=== PATIENT | female | born 1995 | race Two or more races ===

== ENCOUNTER 2018-08-05 17:07 | Inpatient (IN) | payer SELFPAY ==
[~2018-08-05] VITALS: Ht 162.6 cm; Wt 136.7 kg
[~2018-08-05 17:07] MED LIST: SULF1TAB24 PO; TRAM-48 PO
[2018-08-05] MEDS ORDERED: HYOSCYAMINE 0.125 MG TAB.RAPDIS PO STA (18:05)
[2018-08-05 18:32] LABS: BILIRUBIN,URINE NEGATIVE (NEG); CLARITY,URINE CLEAR; COLOR,URINE YELLOW; NITRITE,URINE NEGATIVE (NEG); PROTEIN,URINE NEGATIVE (NEG-TRACE); UROBILINOGEN,URINE 0.2 mg/dL (0.2 mg/dL)
[2018-08-05 18:39] LABS: AMORPHOUS SEDIMENT,UR PRESENT /HPF; BACTERIA,URINE MODERATE /HPF (0-FEW); SQUAMOUS EPITHELIAL CELL,UR FEW /LPF
--- NOTE | 2018-08-05 18:40 | RAD ---
CT abdomen pelvis without intravenous contrast History: Moderate mid abdominal pain for 2 hours. Comparison: None. Technique: CT of the abdomen and pelvis was performed without intravenous or oral contrast. Exposure: One or more of the following individualized dose reduction techniques were utilized for this examination: 1. Automated exposure control 2. Adjustment of the mA and/or kV according to patient size 3. Use of iterative reconstruction technique Findings: Evaluation of solid organs is limited by lack of intravenous contrast. Evaluation of enteric structures may be limited by lack of oral contrast. Liver, spleen, pancreas, gallbladder, and bilateral adrenal glands unremarkable. No bowel obstruction is identified. Urinary bladder is unremarkable. Uterus and adnexa unremarkable CT appearance. Bilateral kidneys and ureters are free stone or obstruction. The maximum diameter of the appendix is 1.0 cm. No convincing periappendiceal inflammatory change is identified. Impression: Appendix is enlarged measuring 10 mm in diameter. No convincing periappendiceal inflammation is identified. Based on size, findings would be compatible with acute appendicitis, but recommend clinical correlation. Electronically signed by: Andrew Gillespie MD (08/05/2018 6:37 PM) [facility]
[2018-08-05] MEDS ORDERED: IV RINGERS,LACTATED 500ML 1,000 ML IV ONE (18:45)
[2018-08-05 19:05] LABS: BASO % 0 % (0-3); EOS # 0.1 x10^3/uL (0.0-0.7); EOS % 1 % (0-3); HEMATOCRIT 39.1 % (36.0-47.0); HEMOGLOBIN 12.9 g/dL (12.0-15.5); LYMPH # 1.4 x10^3/uL (1.0-4.8); LYMPH % 10 % (24-48); MEAN CORPUSCULAR HEMOGLOBIN 26 pg (25-35); MEAN CORPUSCULAR HGB CONC 33 g/dL (31-37); MEAN CORPUSCULAR VOLUME 80 fL (79-100); MONO # 0.6 x10^3/uL (0.0-1.1); MONO % 4 % (0-9); NEUT # 12.7 x10^3uL (1.8-7.7); NEUT % 86 % (31-73); PLATELET COUNT 437 x10^3/uL (140-400); RED BLOOD COUNT 4.91 x10^6/uL (3.50-5.40); RED CELL DISTRIBUTION WIDTH 15.4 % (11.5-14.5); WHITE BLOOD COUNT 14.8 x10^3/uL (4.0-11.0)
[2018-08-05 19:15] LABS: CALCIUM 8.8 mg/dL (8.5-10.1); CREATININE 0.7 mg/dL (0.6-1.0); GFR 104.6; POTASSIUM 3.9 mmol/L (3.5-5.1)
[2018-08-05 19:16] LABS: PREG TEST PT QUAL NEGATIVE (NEG)
[2018-08-05 19:21] LABS: ALBUMIN 3.5 g/dL (3.4-5.0); ALBUMIN/GLOBULIN RATIO 0.7 (1.0-1.7); TOTAL BILIRUBIN 0.2 mg/dL (0.2-1.0); TOTAL PROTEIN 8.5 g/dL (6.4-8.2)
--- NOTE | 2018-08-05 19:33 | PHYS DOC ---
Past Medical History Past Medical History: No Pertinent History Past Surgical History: Other Additional Past Surgical Histo: bilateral eyes Alcohol Use: None Drug Use: None Adult General Chief Complaint Chief Complaint: ABDOMINAL PAIN HPI HPI Patient is a 23 year old [f__sex] who presents with [periumbilical pain. Some nausea, no vomiting, no vaginal bleeding, discharge, nor dysuria. Patient's last menstrual period was approximately 1.5 weeks ago. She denies any trauma. This is been present for the past 2 hours. Nothing really seems to make it better or worse. No radiation of the discomfort, no migration.] Review of Systems Review of Systems Constitutional: Denies fever or chills [] Eyes: Denies change in visual acuity, redness, or eye pain [] HENT: Denies nasal congestion or sore throat [] Respiratory: Denies cough or shortness of breath [] Cardiovascular: No chest pain, no palpitations[] GI: See history of present illness[] : Denies dysuria or hematuria [] Musculoskeletal: Denies back pain or joint pain [] Integument: Denies rash or skin lesions [] Neurologic: Denies headache, focal weakness or sensory changes [] Endocrine: Denies polyuria or polydipsia [] All other systems were reviewed and found to be within normal limits, except as documented in this note. Current Medications Current Medications Current Medications Medications (Trade) Dose Ordered Sig/Magda Start Time Stop Time Status Last Admin Dose Admin Hyoscyamine (Anaspaz) 0.125 mg 1X STAT 08/05/18 18:05 08/05/18 18:09 DC 08/05/18 18:54 0.125 MG Ondansetron HCl (Zofran) 4 mg 1X ONCE 08/05/18 19:45 08/05/18 19:46 DC 08/05/18 19:42 4 MG Ringer's Solution 1,000 ml @ 500 mls/hr 1X ONCE 08/05/18 18:45 08/05/18 20:44 08/05/18 18:55 500 MLS/HR Allergies Allergies Allergies Coded Allergies Type Severity Reaction Last Updated Verified No Known Drug Allergies 03/26/15 No Physical Exam Physical Exam Constitutional: Well developed, well nourished, no acute distress, non-toxic appearance. [] HENT: Normocephalic, atraumatic, bilateral external ears normal, oropharynx moist, no oral exudates, nose normal. [] Eyes: PERRLA, EOMI, conjunctiva normal, no discharge. [] Neck: Normal range of motion, no tenderness, supple, no stridor. [] Cardiovascular:Heart rate regular rhythm, no murmur [] Lungs & Thorax: Bilateral breath sounds clear to auscultation [] Abdomen: Bowel sounds normal, soft, there is some area umbilical tenderness, no rebound, no Rovsing's or obturator signs, no masses, no pulsatile masses. [] Skin: Warm, dry, no erythema, no rash. [] Back: No tenderness, no CVA tenderness. [] Extremities: No tenderness, no cyanosis, no clubbing, ROM intact, no edema. [] Neurologic: Alert and oriented X 3, normal motor function, normal sensory function, no focal deficits noted. [] Psychologic: Affect normal, judgement normal, mood normal. [] Current Patient Data Vital Signs Vital Signs Date Time Temp Pulse Resp B/P (MAP) Pulse Ox O2 Delivery O2 Flow Rate FiO2 08/05/18 17:43 98.0 77 16 158/73 (101) 100 Room Air 98.0 Lab Values Laboratory Tests Test 08/05/18 17:43 08/05/18 17:49 08/05/18 18:45 Urine Collection Type Void Urine Color Yellow Urine Clarity Clear Urine pH 6.0 Urine Specific [place] 1.025 Urine Protein Negative mg/dL (NEG-TRACE) Urine Glucose (UA) Negative mg/dL (NEG) Urine Ketones (Stick) Negative mg/dL (NEG) Urine Blood Trace (NEG) Urine Nitrite Negative (NEG) Urine Bilirubin Negative (NEG) Urine Urobilinogen Dipstick 0.2 mg/dL (0.2 mg/dL) Urine Leukocyte Esterase Negative (NEG) Urine RBC 1-2 /HPF (0-2) Urine WBC 11-20 /HPF (0-4) Urine Squamous Epithelial Cells Few /LPF Urine Amorphous Sediment Present /HPF Urine Bacteria Moderate /HPF (0-FEW) Urine Mucus Mod /LPF POC Urine HCG, Qualitative Hcg negative (Negative) White Blood Count 14.8 x10^3/uL (4.0-11.0) H Red Blood Count 4.91 x10^6/uL (3.50-5.40) Hemoglobin 12.9 g/dL (12.0-15.5) Hematocrit 39.1 % (36.0-47.0) Mean Corpuscular Volume 80 fL (79-100) Mean Corpuscular Hemoglobin 26 pg (25-35) Mean Corpuscular Hemoglobin Concent 33 g/dL (31-37) Red Cell Distribution Width 15.4 % (11.5-14.5) H Platelet Count 437 x10^3/uL (140-400) H Neutrophils (%) (Auto) 86 % (31-73) H Lymphocytes (%) (Auto) 10 % (24-48) L Monocytes (%) (Auto) 4 % (0-9) Eosinophils (%) (Auto) 1 % (0-3) Basophils (%) (Auto) 0 % (0-3) Neutrophils # (Auto) 12.7 x10^3uL (1.8-7.7) H Lymphocytes # (Auto) 1.4 x10^3/uL (1.0-4.8) Monocytes # (Auto) 0.6 x10^3/uL (0.0-1.1) Eosinophils # (Auto) 0.1 x10^3/uL (0.0-0.7) Basophils # (Auto) 0.0 x10^3/uL (0.0-0.2) Sodium Level 140 mmol/L (136-145) Potassium Level 3.9 mmol/L (3.5-5.1) Chloride Level 102 mmol/L (98-107) Carbon Dioxide Level 29 mmol/L (21-32) Anion Gap 9 (6-14) Blood Urea Nitrogen 13 mg/dL (7-20) Creatinine 0.7 mg/dL (0.6-1.0) Estimated GFR (Cockcroft-Gault) 104.6 BUN/Creatinine Ratio 19 (6-20) Glucose Level 103 mg/dL (70-99) H Calcium Level 8.8 mg/dL (8.5-10.1) Total Bilirubin 0.2 mg/dL (0.2-1.0) Aspartate Amino Transferase (AST) 15 U/L (15-37) Alanine Aminotransferase (ALT) 32 U/L (14-59) Alkaline Phosphatase 113 U/L (46-116) Total Protein 8.5 g/dL (6.4-8.2) H Albumin 3.5 g/dL (3.4-5.0) Albumin/Globulin Ratio 0.7 (1.0-1.7) L Lipase 100 U/L (73-393) Serum Test, Qualitative Negative (NEG) Laboratory Tests 08/05/18 18:45 Laboratory Tests 08/05/18 18:45 EKG EKG EKG shows normal sinus rhythm no ST elevations. Rate of 71, normal axis[] Radiology/Procedures Radiology/Procedures CT scan of the abdomen and pelvis shows a 10 mm appendix however there is no convincing periappendiceal inflammation.[] Course & Med Decision Making Course & Med Decision Making Pertinent Labs and Imaging studies reviewed. (See chart for details) [Elevated white count, some white cells in the urine. Essentially normal chemistry panel] ED course patient was placed and the patient tolerates exam well. During the course of her ED stay attempted to treat the discomfort with Levsin which she threw up. Of her emergency Department stay of pain started migrating to the right lower quadrant and increased pain with passive movement of her abdomen. Due to this, consultation was made with surgical service due to exam findings as well as the CT scan. Dragon Disclaimer Dragon Disclaimer This electronic medical record was generated, in whole or in part, using a voice recognition dictation system. Departure Departure Impression: Primary Impression: Appendicitis Disposition: ADMITTED INPATIENT Admitting Physician: Other Condition: STABLE Referrals: NO PCP (PCP) JORGE LUIS SANCHEZ DO Aug 05, 2018 19:33
[2018-08-05] MEDS ORDERED: ONDANSETRON PF 4 MG/2 ML VIAL. IV ONE (19:45)
[2018-08-05 20:20] VITALS: BP 145/67
[2018-08-05] MEDS: MORPHINE SULFATE 2 MG/ML VIAL. IV PRN (21:14)
[2018-08-05] MEDS: ONDANSETRON PF 4 MG/2 ML VIAL. IV PRN (21:17)
[2018-08-05 23:00] VITALS: BP 125/65
[2018-08-06] VITALS (13 sets, daily range): BP systolic 104–133; BP diastolic 39–67
[2018-08-06] MEDS: MORPHINE SULFATE 2 MG/ML VIAL. IV PRN ×4 (00:30→07:24)
[2018-08-06] MEDS: PIPERACILLIN/TAZOBACTAM 3.375 GM in IV NORMAL SALINE 50ML 50 ML IV SCH ×5 (00:31→23:43)
[2018-08-06 05:26] LABS: BASO % 0 % (0-3); EOS % 0 % (0-3); HEMATOCRIT 36.8 % (36.0-47.0); LYMPH # 1.3 x10^3/uL (1.0-4.8); LYMPH % 9 % (24-48); MEAN CORPUSCULAR HEMOGLOBIN 26 pg (25-35); MEAN CORPUSCULAR HGB CONC 33 g/dL (31-37); MEAN CORPUSCULAR VOLUME 81 fL (79-100); MONO # 0.7 x10^3/uL (0.0-1.1); MONO % 5 % (0-9); NEUT % 86 % (31-73); PLATELET COUNT 419 x10^3/uL (140-400); RED BLOOD COUNT 4.56 x10^6/uL (3.50-5.40); RED CELL DISTRIBUTION WIDTH 15.3 % (11.5-14.5); WHITE BLOOD COUNT 15.1 x10^3/uL (4.0-11.0)
[2018-08-06] MEDS ORDERED: INFLUENZA VAX SCREEN BY RX. MC PRN (05:30)
[2018-08-06 06:04] LABS: ALBUMIN 3.2 g/dL (3.4-5.0); ALBUMIN/GLOBULIN RATIO 0.7 (1.0-1.7); CALCIUM 9.2 mg/dL (8.5-10.1); CREATININE 0.8 mg/dL (0.6-1.0); GFR 89.7; POTASSIUM 4.2 mmol/L (3.5-5.1); TOTAL BILIRUBIN 0.4 mg/dL (0.2-1.0)
[2018-08-06] MEDS: ONDANSETRON PF 4 MG/2 ML VIAL. IV PRN (07:25)
--- NOTE | 2018-08-06 07:53 | PDOC1 ---
History and Physical Date of Admission Date of Admission DATE: 08/06/18 TIME: 07:48 Identification/Chief Complaint Chief Complaint Abdominal pain Source Source: Patient History of Present Illness History of Present Illness 23-year-old female with a 24-hour history of right lower quadrant abdominal pain and nausea no vomiting no fevers chills Past Medical History Cardiovascular: No pertinent hx Pulmonary: No pertinent hx GI: No pertinent hx Heme/Onc: No pertinent hx Hepatobiliary: No pertinent hx Psych: No pertinent hx Rheumatologic: No pertinent hx Infectious disease: No pertinent hx ENT: No pertinent hx Renal/: No pertinent hx Endocrine: No pertinent hx Dermatology: No pertinent hx Past Surgical History Past Surgical History: Other (Eye surgery) Family History Family History: No Significant Social History Smoke: No ALCOHOL: none Drugs: None Current Problem List Problem List Problems Medical Problems: (1) Appendicitis Status: Acute Current Medications Current Medications Current Medications Hyoscyamine (Anaspaz) 0.125 mg 1X STAT PO Last administered on 08/05/18at 18: 54; Start 08/05/18 at 18:05; Stop 08/05/18 at 18:09; Status DC Ringer's Solution 1,000 ml @ 500 mls/hr 1X ONCE IV Last administered on 08/05at 18:55; Start 08/05/18 at 18:45; Stop 08/05/18 at 20:44; Status DC Ondansetron HCl (Zofran) 4 mg 1X ONCE IV Last administered on 08/05/18at 19:42 ; Start 08/05/18 at 19:45; Stop 08/05/18 at 19:46; Status DC Ondansetron HCl (Zofran) 4 mg PRN Q8HRS PRN IV NAUSEA/VOMITING Last administered on 08/06/18at 07:25; Start 08/05/18 at 20:00; Stop 08/06/18 at 19 :59 Morphine Sulfate (Morphine Sulfate) 2 mg PRN Q2HR PRN IV PAIN Last administered on 08/06/18at 07:24; Start 08/05/18 at 20:00; Stop 08/06/18 at 19 :59 Piperacillin Sod/ Tazobactam Sod 3.375 gm/Sodium Chloride 50 ml @ 100 mls/hr Q6HRS IV Last administered on 08/06/18at 06:00; Start 08/06/18 at 00:00 Influenza Virus Vaccine (Afluria Trivalent [id number] Syringe) 0.5 ml ONCE ONCE VAX IM ; Start 08/06/18 at 09:00; Stop 08/06/18 at 09:01 Info (FLU VACCINE SCREEN per RX) 1 each PRN 1X PRN MC SEE COMMENTS; Start at 05:30; Status Cancel Active Scripts Active Bactrim Ds Tablet (Sulfamethoxazole/Trimethoprim) 1 Each Tablet 2 Tab PO BID 7 Days Ultram (Tramadol Hcl) 50 Mg Tablet 50 Mg PO Q6H PRN Allergies Allergies: Coded Allergies: No Known Drug Allergies (Unverified , 03/26/15) ROS Gastrointestinal: Yes Nausea, Yes Abdominal Pain Physical Exam General: Alert, Oriented X3, Cooperative, moderate distress HEENT: Atraumatic, PERRLA, EOMI Lungs: Clear to auscultation, Normal air movement Heart: RRR, no murmurs Abdomen: Normal bowel sounds, Soft, Other (right lower quadrant tenderness) Extremities: No clubbing, No edema Skin: No significant lesion Neuro: Normal speech Psych/Mental Status: Mental status NL Vitals Vitals Vital Signs Date Time Temp Pulse Resp B/P (MAP) Pulse Ox O2 Delivery O2 Flow Rate FiO2 08/06/18 07:24 Room Air 08/06/18 06:22 18 08/06/18 03:00 98.6 65 117/67 (84) 98 98.6 Labs Labs Laboratory Tests Test 08/05/18 17:43 08/05/18 17:49 08/05/18 18:45 08/06/18 04:10 Urine Collection Type Void Urine Color Yellow Urine Clarity Clear Urine pH 6.0 Urine Specific [place] 1.025 Urine Protein Negative mg/dL (NEG-TRACE) Urine Glucose (UA) Negative mg/dL (NEG) Urine Ketones (Stick) Negative mg/dL (NEG) Urine Blood Trace (NEG) Urine Nitrite Negative (NEG) Urine Bilirubin Negative (NEG) Urine Urobilinogen Dipstick 0.2 mg/dL (0.2 mg/dL) Urine Leukocyte Esterase Negative (NEG) Urine RBC 1-2 /HPF (0-2) Urine WBC 11-20 /HPF (0-4) Urine Squamous Epithelial Cells Few /LPF Urine Amorphous Sediment Present /HPF Urine Bacteria Moderate /HPF (0-FEW) Urine Mucus Mod /LPF Bedside Urine HCG, Qualitative Hcg negative (Negative) White Blood Count 14.8 x10^3/uL (4.0-11.0) 15.1 x10^3/uL (4.0-11.0) Red Blood Count 4.91 x10^6/uL (3.50-5.40) 4.56 x10^6/uL (3.50-5.40) Hemoglobin 12.9 g/dL (12.0-15.5) 12.0 g/dL (12.0-15.5) Hematocrit 39.1 % (36.0-47.0) 36.8 % (36.0-47.0) Mean Corpuscular Volume 80 fL (79-100) 81 fL (79-100) Mean Corpuscular Hemoglobin 26 pg (25-35) 26 pg (25-35) Mean Corpuscular Hemoglobin Concent 33 g/dL (31-37) 33 g/dL (31-37) Red Cell Distribution Width 15.4 % (11.5-14.5) 15.3 % (11.5-14.5) Platelet Count 437 x10^3/uL (140-400) 419 x10^3/uL (140-400) Neutrophils (%) (Auto) 86 % (31-73) 86 % (31-73) Lymphocytes (%) (Auto) 10 % (24-48) 9 % (24-48) Monocytes (%) (Auto) 4 % (0-9) 5 % (0-9) Eosinophils (%) (Auto) 1 % (0-3) 0 % (0-3) Basophils (%) (Auto) 0 % (0-3) 0 % (0-3) Neutrophils # (Auto) 12.7 x10^3uL (1.8-7.7) 13.0 x10^3uL (1.8-7.7) Lymphocytes # (Auto) 1.4 x10^3/uL (1.0-4.8) 1.3 x10^3/uL (1.0-4.8) Monocytes # (Auto) 0.6 x10^3/uL (0.0-1.1) 0.7 x10^3/uL (0.0-1.1) Eosinophils # (Auto) 0.1 x10^3/uL (0.0-0.7) 0.0 x10^3/uL (0.0-0.7) Basophils # (Auto) 0.0 x10^3/uL (0.0-0.2) 0.0 x10^3/uL (0.0-0.2) Sodium Level 140 mmol/L (136-145) 139 mmol/L (136-145) Potassium Level 3.9 mmol/L (3.5-5.1) 4.2 mmol/L (3.5-5.1) Chloride Level 102 mmol/L (98-107) 102 mmol/L (98-107) Carbon Dioxide Level 29 mmol/L (21-32) 31 mmol/L (21-32) Anion Gap 9 (6-14) 6 (6-14) Blood Urea Nitrogen 13 mg/dL (7-20) 10 mg/dL (7-20) Creatinine 0.7 mg/dL (0.6-1.0) 0.8 mg/dL (0.6-1.0) Estimated GFR (Cockcroft-Gault) 104.6 89.7 BUN/Creatinine Ratio 19 (6-20) 13 (6-20) Glucose Level 103 mg/dL (70-99) 115 mg/dL (70-99) Calcium Level 8.8 mg/dL (8.5-10.1) 9.2 mg/dL (8.5-10.1) Total Bilirubin 0.2 mg/dL (0.2-1.0) 0.4 mg/dL (0.2-1.0) Aspartate Amino Transf (AST/SGOT) 15 U/L (15-37) 14 U/L (15-37) Alanine Aminotransferase (ALT/SGPT) 32 U/L (14-59) 27 U/L (14-59) Alkaline Phosphatase 113 U/L (46-116) 99 U/L (46-116) Total Protein 8.5 g/dL (6.4-8.2) 8.0 g/dL (6.4-8.2) Albumin 3.5 g/dL (3.4-5.0) 3.2 g/dL (3.4-5.0) Albumin/Globulin Ratio 0.7 (1.0-1.7) 0.7 (1.0-1.7) Lipase 100 U/L (73-393) Serum Test, Qualitative Negative (NEG) Laboratory Tests Test 08/05/18 17:43 08/05/18 17:49 18 18:45 08/06/18 04:10 Urine Collection Type Void Urine Color Yellow Urine Clarity Clear Urine pH 6.0 Urine Specific [place] 1.025 Urine Protein Negative mg/dL (NEG-TRACE) Urine Glucose (UA) Negative mg/dL (NEG) Urine Ketones (Stick) Negative mg/dL (NEG) Urine Blood Trace (NEG) Urine Nitrite Negative (NEG) Urine Bilirubin Negative (NEG) Urine Urobilinogen Dipstick 0.2 mg/dL (0.2 mg/dL) Urine Leukocyte Esterase Negative (NEG) Urine RBC 1-2 /HPF (0-2) Urine WBC 11-20 /HPF (0-4) Urine Squamous Epithelial Cells Few /LPF Urine Amorphous Sediment Present /HPF Urine Bacteria Moderate /HPF (0-FEW) Urine Mucus Mod /LPF Bedside Urine HCG, Qualitative Hcg negative (Negative) White Blood Count 14.8 x10^3/uL (4.0-11.0) 15.1 x10^3/uL (4.0-11.0) Red Blood Count 4.91 x10^6/uL (3.50-5.40) 4.56 x10^6/uL (3.50-5.40) Hemoglobin 12.9 g/dL (12.0-15.5) 12.0 g/dL (12.0-15.5) Hematocrit 39.1 % (36.0-47.0) 36.8 % (36.0-47.0) Mean Corpuscular Volume 80 fL (79-100) 81 fL (79-100) Mean Corpuscular Hemoglobin 26 pg (25-35) 26 pg (25-35) Mean Corpuscular Hemoglobin Concent 33 g/dL (31-37) 33 g/dL (31-37) Red Cell Distribution Width 15.4 % (11.5-14.5) 15.3 % (11.5-14.5) Platelet Count 437 x10^3/uL (140-400) 419 x10^3/uL (140-400) Neutrophils (%) (Auto) 86 % (31-73) 86 % (31-73) Lymphocytes (%) (Auto) 10 % (24-48) 9 % (24-48) Monocytes (%) (Auto) 4 % (0-9) 5 % (0-9) Eosinophils (%) (Auto) 1 % (0-3) 0 % (0-3) Basophils (%) (Auto) 0 % (0-3) 0 % (0-3) Neutrophils # (Auto) 12.7 x10^3uL (1.8-7.7) 13.0 x10^3uL (1.8-7.7) Lymphocytes # (Auto) 1.4 x10^3/uL (1.0-4.8) 1.3 x10^3/uL (1.0-4.8) Monocytes # (Auto) 0.6 x10^3/uL (0.0-1.1) 0.7 x10^3/uL (0.0-1.1) Eosinophils # (Auto) 0.1 x10^3/uL (0.0-0.7) 0.0 x10^3/uL (0.0-0.7) Basophils # (Auto) 0.0 x10^3/uL (0.0-0.2) 0.0 x10^3/uL (0.0-0.2) Sodium Level 140 mmol/L (136-145) 139 mmol/L (136-145) Potassium Level 3.9 mmol/L (3.5-5.1) 4.2 mmol/L (3.5-5.1) Chloride Level 102 mmol/L (98-107) 102 mmol/L (98-107) Carbon Dioxide Level 29 mmol/L (21-32) 31 mmol/L (21-32) Anion Gap 9 (6-14) 6 (6-14) Blood Urea Nitrogen 13 mg/dL (7-20) 10 mg/dL (7-20) Creatinine 0.7 mg/dL (0.6-1.0) 0.8 mg/dL (0.6-1.0) Estimated GFR (Cockcroft-Gault) 104.6 89.7 BUN/Creatinine Ratio 19 (6-20) 13 (6-20) Glucose Level 103 mg/dL (70-99) 115 mg/dL (70-99) Calcium Level 8.8 mg/dL (8.5-10.1) 9.2 mg/dL (8.5-10.1) Total Bilirubin 0.2 mg/dL (0.2-1.0) 0.4 mg/dL (0.2-1.0) Aspartate Amino Transf (AST/SGOT) 15 U/L (15-37) 14 U/L (15-37) Alanine Aminotransferase (ALT/SGPT) 32 U/L (14-59) 27 U/L (14-59) Alkaline Phosphatase 113 U/L (46-116) 99 U/L (46-116) Total Protein 8.5 g/dL (6.4-8.2) 8.0 g/dL (6.4-8.2) Albumin 3.5 g/dL (3.4-5.0) 3.2 g/dL (3.4-5.0) Albumin/Globulin Ratio 0.7 (1.0-1.7) 0.7 (1.0-1.7) Lipase 100 U/L (73-393) Serum Test, Qualitative Negative (NEG) Images Images CT scan of the abdomen shows enlarged appendix no periappendiceal inflammation VTE Prophylaxis Ordered VTE Prophylaxis Devices: No VTE Pharmacological Prophylaxi: Contraindicated Assessment/Plan Assessment/Plan Acute appendicitis plan laparoscopic appendectomy BABS LITTLE MD Aug 06, 2018 07:52
[2018-08-06 08:04] LABS: % BANDS 3 % (0-9); % LYMPHS 15 % (24-48); % MONOS 7 % (0-10); % SEGS 75 % (35-66); PLT ESTIMATE INCREASED (ADEQUATE)
[2018-08-06] MEDS ORDERED: IV RINGERS,LACTATED 1000ML 1,000 ML IV SCH (09:02)
[2018-08-06] MEDS ORDERED: LIDOCAINE 1% PF 2 ML VIAL. ID PRN (09:15)
[2018-08-06] MEDS ORDERED: fentaNYL PF VIAL 100 MCG/2 ML VIAL IV PRN ×2 (09:15)
[2018-08-06] MEDS ORDERED: MORPHINE SULFATE 2 MG/ML VIAL. IV PRN ×2 (09:15→12:30)
[2018-08-06] MEDS ORDERED: HYDROmorphone 2 MG/ML VIAL IV PRN (09:15)
[2018-08-06] MEDS ORDERED: PROCHLORPERAZINE 10 MG/2 ML VIAL. IV PRN (09:15)
[2018-08-06] MEDS ORDERED: ONDANSETRON PF 4 MG/2 ML VIAL. IV PRN ×2 (09:15→12:30)
[2018-08-06] MEDS ORDERED: DEXAMETHASONE SOD PHOS 20 MG/5 ML VIAL. ONE (09:45)
[2018-08-06] MEDS ORDERED: ONDANSETRON PF 4 MG/2 ML VIAL. ONE (09:45)
[2018-08-06] MEDS ORDERED: SEVOFLURANE 31 TO 60 MINUTES. IH ONE (09:45)
[2018-08-06] MEDS ORDERED: fentaNYL PF VIAL 100 MCG/2 ML VIAL ONE ×2 (09:45→12:39)
[2018-08-06] MEDS ORDERED: KETOROLAC 30 MG/ML INJ FOR OR. INJ ONE (09:45)
[2018-08-06] MEDS ORDERED: PROPOFOL 20 ML IV ONE ×2 (09:45→12:20)
[2018-08-06] MEDS ORDERED: BUPIVAC MPF-EPI 0.5%-1:200000 30 ML VIAL. ONE (10:24)
[2018-08-06] MEDS ORDERED: NEOSTIGMINE METHYLSULFATE 5 MG/5 ML SYRINGE. ONE (12:02)
[2018-08-06] MEDS ORDERED: GLYCOPYRROLATE 1 MG/5 ML VIAL. ONE (12:02)
[2018-08-06] MEDS ORDERED: oxyCODONE/APAP 5/325 1 TAB TABLET PO PRN (12:30)
[2018-08-06] MEDS ORDERED: 0.9 % SODIUM CHLORIDE 10 ML DISP.SYRIN. IV PRN (12:30)
--- NOTE | 2018-08-06 12:31 | PDOC4 ---
Operative Note Operative Note Date: 08/06/2018 Preoperative diagnosis: Acute appendicitis Postoperative diagnosis: Same Procedure: Laparoscopic appendectomy Surgeon: Deyvi Specimen: Appendix Patient: Patient is a 23-year-old female is mated to the hospital with right lower quadrant abdominal pain and elevated white count and a CT scan showing a dilated appendix procedure of laparoscopic appendectomy was explained to the patient detail was benefits were also discussed including bleeding infection injury to intra-abdominal contents possibly necessitating further or open operations alternatives to this procedure also discussed with the patient who seemed understanding gave both verbal and written consent had procedure performed. Patient was taken to the operating room placed in supine position general anesthesia was initiated once patient was asleep and intubated her abdomen was prepped and draped usual sterile fashion using ChloraPrep. Just below the umbilicus injected with quarter percent Marcaine with epinephrine incision was made lead blade scalpel varies needle was placed within the abdomen creating pneumoperitoneum once this was complete a 12 mm port was placed at the umbilicus and a 5 mm camera was placed within the abdomen which was inspected no other at maladies were noted was noted the appendix was somewhat dilated and mildly inflamed. A 5 mm port was placed low in the midline and a second 5 mm port was placed in the right mid abdomen camera was moved to the lower midline port the appendix was grasped retracted towards anterior abdominal wall window was propagated through the mesoappendix with [place] dissector a Endo KELI stapler was then used to staple and transect the base the appendix a second load on the stapler was used to staple and transect the mesoappendix. Endo Catch was then placed in Endo Catch bag and removed from the umbilicus right lower quadrant was irrigated and suctioned dry hemostasis didn' t be appropriate and the pneumoperitoneum was reduced all ports removed the fascial defect at the umbilicus was closed with [id number] 0 Vicryl suture and the skin was approximated all port sites with 4-0 Monocryl Mastisol Steri- Strips and island dressings were applied. Patient was waken next made in the operating room taken recovery in stable condition all sponge instrument needle counts listed as correct. Estimated blood loss 5 mL ABBS LITTLE MD Aug 06, 2018 12:31
[2018-08-06] MEDS: IV DEXTROSE 5%-LACT RINGERS 1,000 ML IV SCH ×2 (13:51→23:40)
--- NOTE | 2018-08-06 16:03 | EKG ---
[facility] [address] [place] [address] Test Date: 2018-08-05 Test Time: 17:52:43 Pat Name: YANNA HOLLOWAY Department: Room: 444 1 Gender: F Biology Specialist: : [id number] Requested By: BABS LITTLE Order Number: [id number] Reading MD: Eric Guadalupe MD Measurements Intervals Artie Rate: 71 P: 31 LA: 138 QRS: 47 QRSD: 78 T: 34 QT: 372 QTc: 409 Interpretive Statements SINUS RHYTHM Electronically Signed On 08-07-2018 13:44:24 CDT by Eric Guadalupe MD
[2018-08-06] MEDS: KETOROLAC 15 MG/ML VIAL. IV SCH ×2 (17:26→23:39)
[2018-08-06] MEDS: oxyCODONE/APAP 5/325 1 TAB TABLET PO PRN (23:40)
[2018-08-07 03:22] VITALS: BP 108/51
[2018-08-07] MEDS: oxyCODONE/APAP 5/325 1 TAB TABLET PO PRN ×2 (04:33→11:14)
[2018-08-07 05:00] LABS: BASO % 0 % (0-3); EOS % 0 % (0-3); HEMATOCRIT 32.1 % (36.0-47.0); HEMOGLOBIN 10.5 g/dL (12.0-15.5); LYMPH # 1.6 x10^3/uL (1.0-4.8); LYMPH % 13 % (24-48); MEAN CORPUSCULAR HEMOGLOBIN 27 pg (25-35); MEAN CORPUSCULAR HGB CONC 33 g/dL (31-37); MEAN CORPUSCULAR VOLUME 81 fL (79-100); MONO # 0.8 x10^3/uL (0.0-1.1); MONO % 7 % (0-9); NEUT # 9.8 x10^3uL (1.8-7.7); NEUT % 81 % (31-73); PLATELET COUNT 354 x10^3/uL (140-400); RED BLOOD COUNT 3.96 x10^6/uL (3.50-5.40); RED CELL DISTRIBUTION WIDTH 15.2 % (11.5-14.5); WHITE BLOOD COUNT 12.2 x10^3/uL (4.0-11.0)
[2018-08-07] MEDS: KETOROLAC 15 MG/ML VIAL. IV SCH (06:07)
[2018-08-07] MEDS: PIPERACILLIN/TAZOBACTAM 3.375 GM in IV NORMAL SALINE 50ML 50 ML IV SCH (06:09)
[2018-08-07 07:00] VITALS: BP 136/66
--- NOTE | 2018-08-07 09:07 | PDOC3 ---
Discharge Summary Visit Information Date of Admission: Aug 05, 2018 Date of Discharge: Aug 07, 2018 Admitting Diagnosis: acute appendicitis Final Diagnosis Problems Medical Problems: (1) Appendicitis Status: Acute Brief Hospital Course Allergies Allergies Coded Allergies Type Severity Reaction Last Updated Verified No Known Drug Allergies 08/06/18 No Vital Signs Vital Signs Date Time Temp Pulse Resp B/P (MAP) Pulse Ox O2 Delivery O2 Flow Rate FiO2 08/07/18 05:35 Room Air 08/07/18 04:33 20 98 08/07/18 03:22 98.2 57 108/51 (70) 98.2 08/06/18 23:40 10.0 Lab Results Laboratory Tests Test 08/05/18 17:43 08/05/18 17:49 08/05/18 18:45 08/06/18 04:10 Urine Collection Type Void Urine Color Yellow Urine Clarity Clear Urine pH 6.0 Urine Specific [place] 1.025 Urine Protein Negative mg/dL (NEG-TRACE) Urine Glucose (UA) Negative mg/dL (NEG) Urine Ketones (Stick) Negative mg/dL (NEG) Urine Blood Trace (NEG) Urine Nitrite Negative (NEG) Urine Bilirubin Negative (NEG) Urine Urobilinogen Dipstick 0.2 mg/dL (0.2 mg/dL) Urine Leukocyte Esterase Negative (NEG) Urine RBC 1-2 /HPF (0-2) Urine WBC 11-20 /HPF (0-4) Urine Squamous Epithelial Cells Few /LPF Urine Amorphous Sediment Present /HPF Urine Bacteria Moderate /HPF (0-FEW) Urine Mucus Mod /LPF Bedside Urine HCG, Qualitative Hcg negative (Negative) White Blood Count 14.8 x10^3/uL (4.0-11.0) 15.1 x10^3/uL (4.0-11.0) Red Blood Count 4.91 x10^6/uL (3.50-5.40) 4.56 x10^6/uL (3.50-5.40) Hemoglobin 12.9 g/dL (12.0-15.5) 12.0 g/dL (12.0-15.5) Hematocrit 39.1 % (36.0-47.0) 36.8 % (36.0-47.0) Mean Corpuscular Volume 80 fL (79-100) 81 fL (79-100) Mean Corpuscular Hemoglobin 26 pg (25-35) 26 pg (25-35) Mean Corpuscular Hemoglobin Concent 33 g/dL (31-37) 33 g/dL (31-37) Red Cell Distribution Width 15.4 % (11.5-14.5) 15.3 % (11.5-14.5) Platelet Count 437 x10^3/uL (140-400) 419 x10^3/uL (140-400) Neutrophils (%) (Auto) 86 % (31-73) 86 % (31-73) Lymphocytes (%) (Auto) 10 % (24-48) 9 % (24-48) Monocytes (%) (Auto) 4 % (0-9) 5 % (0-9) Eosinophils (%) (Auto) 1 % (0-3) 0 % (0-3) Basophils (%) (Auto) 0 % (0-3) 0 % (0-3) Neutrophils # (Auto) 12.7 x10^3uL (1.8-7.7) 13.0 x10^3uL (1.8-7.7) Lymphocytes # (Auto) 1.4 x10^3/uL (1.0-4.8) 1.3 x10^3/uL (1.0-4.8) Monocytes # (Auto) 0.6 x10^3/uL (0.0-1.1) 0.7 x10^3/uL (0.0-1.1) Eosinophils # (Auto) 0.1 x10^3/uL (0.0-0.7) 0.0 x10^3/uL (0.0-0.7) Basophils # (Auto) 0.0 x10^3/uL (0.0-0.2) 0.0 x10^3/uL (0.0-0.2) Sodium Level 140 mmol/L (136-145) 139 mmol/L (136-145) Potassium Level 3.9 mmol/L (3.5-5.1) 4.2 mmol/L (3.5-5.1) Chloride Level 102 mmol/L (98-107) 102 mmol/L (98-107) Carbon Dioxide Level 29 mmol/L (21-32) 31 mmol/L (21-32) Anion Gap 9 (6-14) 6 (6-14) Blood Urea Nitrogen 13 mg/dL (7-20) 10 mg/dL (7-20) Creatinine 0.7 mg/dL (0.6-1.0) 0.8 mg/dL (0.6-1.0) Estimated GFR (Cockcroft-Gault) 104.6 89.7 BUN/Creatinine Ratio 19 (6-20) 13 (6-20) Glucose Level 103 mg/dL (70-99) 115 mg/dL (70-99) Calcium Level 8.8 mg/dL (8.5-10.1) 9.2 mg/dL (8.5-10.1) Total Bilirubin 0.2 mg/dL (0.2-1.0) 0.4 mg/dL (0.2-1.0) Aspartate Amino Transf (AST/SGOT) 15 U/L (15-37) 14 U/L (15-37) Alanine Aminotransferase (ALT/SGPT) 32 U/L (14-59) 27 U/L (14-59) Alkaline Phosphatase 113 U/L (46-116) 99 U/L (46-116) Total Protein 8.5 g/dL (6.4-8.2) 8.0 g/dL (6.4-8.2) Albumin 3.5 g/dL (3.4-5.0) 3.2 g/dL (3.4-5.0) Albumin/Globulin Ratio 0.7 (1.0-1.7) 0.7 (1.0-1.7) Lipase 100 U/L (73-393) Serum Test, Qualitative Negative (NEG) Segmented Neutrophils % 75 % (35-66) Band Neutrophils % 3 % (0-9) Lymphocytes % 15 % (24-48) Monocytes % 7 % (0-10) Platelet Estimate Increased (ADEQUATE) Test 08/07/18 04:13 White Blood Count 12.2 x10^3/uL (4.0-11.0) Red Blood Count 3.96 x10^6/uL (3.50-5.40) Hemoglobin 10.5 g/dL (12.0-15.5) Hematocrit 32.1 % (36.0-47.0) Mean Corpuscular Volume 81 fL (79-100) Mean Corpuscular Hemoglobin 27 pg (25-35) Mean Corpuscular Hemoglobin Concent 33 g/dL (31-37) Red Cell Distribution Width 15.2 % (11.5-14.5) Platelet Count 354 x10^3/uL (140-400) Neutrophils (%) (Auto) 81 % (31-73) Lymphocytes (%) (Auto) 13 % (24-48) Monocytes (%) (Auto) 7 % (0-9) Eosinophils (%) (Auto) 0 % (0-3) Basophils (%) (Auto) 0 % (0-3) Neutrophils # (Auto) 9.8 x10^3uL (1.8-7.7) Lymphocytes # (Auto) 1.6 x10^3/uL (1.0-4.8) Monocytes # (Auto) 0.8 x10^3/uL (0.0-1.1) Eosinophils # (Auto) 0.0 x10^3/uL (0.0-0.7) Basophils # (Auto) 0.0 x10^3/uL (0.0-0.2) Laboratory Tests Test 08/07/18 04:13 White Blood Count 12.2 x10^3/uL (4.0-11.0) Red Blood Count 3.96 x10^6/uL (3.50-5.40) Hemoglobin 10.5 g/dL (12.0-15.5) Hematocrit 32.1 % (36.0-47.0) Mean Corpuscular Volume 81 fL (79-100) Mean Corpuscular Hemoglobin 27 pg (25-35) Mean Corpuscular Hemoglobin Concent 33 g/dL (31-37) Red Cell Distribution Width 15.2 % (11.5-14.5) Platelet Count 354 x10^3/uL (140-400) Neutrophils (%) (Auto) 81 % (31-73) Lymphocytes (%) (Auto) 13 % (24-48) Monocytes (%) (Auto) 7 % (0-9) Eosinophils (%) (Auto) 0 % (0-3) Basophils (%) (Auto) 0 % (0-3) Neutrophils # (Auto) 9.8 x10^3uL (1.8-7.7) Lymphocytes # (Auto) 1.6 x10^3/uL (1.0-4.8) Monocytes # (Auto) 0.8 x10^3/uL (0.0-1.1) Eosinophils # (Auto) 0.0 x10^3/uL (0.0-0.7) Basophils # (Auto) 0.0 x10^3/uL (0.0-0.2) Brief Hospital Course Ms. Quiñones is a 23 old female presented with right lower quadrant abdominal pain and CT scan showing signs consistent with acute appendicitis. Patient underwent laparoscopic appendectomy with removal appendix without any difficulties postoperative course was quite uneventful she is tolerating regular diet feeling much better this morning and her white count is decreased from time of admission. Patient to be discharged home in stable condition follow up with Dr. Little in 2 weeks Discharge Information Condition at Discharge: Improved Follow Up: Weeks Disposition/Orders: D/C to Home Scheduled Sulfamethoxazole/Trimethoprim (Bactrim Ds Tablet) 1 Each Tablet, 2 TAB PO BID for 7 Days Prescribed by: JORGE ESPARZA on 04/21/16 1012 Scheduled PRN Tramadol Hcl (Ultram) 50 Mg Tablet, 50 MG PO Q6H PRN for PAIN, #20 Prescribed by: JORGE ESPARZA on 04/21/16 1012 Patient Instructions Patient Instructions No lifting greater than 20 pounds for 2 weeks BABS LITTLE MD Aug 07, 2018 09:07
--- NOTE | 2018-08-07 09:07 | DISCH ---
DISCHARGE INSTRUCTIONS Condition on Discharge Condition on Discharge: Stable Activity After Discharge Activity Instructions for Disc: Avoid exertion Other activity instructions: no lifting greater than 20 pounds for 2 weeks Diet after Discharge Diet after Discharge: Regular Wound Incision Care Other wound/incision instructi: aSrahi shower today Contacting the after DC Call your doctor for: If your condition worsens Follow-Up Follow up with: Dr. Little in 2 weeks BABS LITTLE MD Aug 07, 2018 09:07
--- NOTE | 2018-08-10 10:09 | PATHOLOGY ---
[facility] Accession Number: [id number] . 01 Material submitted: . APPENDIX . 01 Clinical history: . Appendicitis. . 02 Diagnosis: Appendix, laparoscopic appendectomy: - Acute appendicitis with serosal exudate. (JPM:constanza; 08/09/2018) QMS/08/09/2018 . 02 Comment: There is no evidence of rupture. . 02 Electronically signed: . Jhon Lee MD, Pathologist NPI- [id number] . 01 Gross description: . Received in formalin labeled "Quiñones, Belkys, appendix" is a vermiform appendix measuring 6.0 cm in length and 1.2 cm in diameter. There is a staple line present at the proximal margin. There is an attached portion of mesoappendix measuring 6.5 x 3.1 x 2.0 cm. The serosa is soriano-brown with soriano-white purulent exudate over 70% of the surface. The specimen is serially sectioned to reveal a luminal diameter of 0.2 cm, and no perforations or fecaliths identified. The mucosa is red-brown and hemorrhagic. Instructional Support Technician sections of the specimen are submitted in cassette A1, with the proximal margin inked black. ([facility] [place]; 08/08/2018) SYC/SYC . 02 Pathologist provided ICD-10: K35.80 . 02 CPT . 471155 Specimen Comment: A courtesy copy of this report has been sent to Specimen Comment: [phone], . Specimen Comment: Report sent to / DR SANCHEZ Specimen Comment: A duplicate report has been generated due to demographic updates. Performed at: [address], [place], [place] [id number] MD Shadi Funes MD Phone: [phone] Performed at: [address] [id number] MD Jhon Lee MD Phone: [phone]
== END 2018-08-07 11:20 | disposition home or self-care (01) | DRG 343 ==
LOC: ER 17:07 → 4 NORTH 19:49
PROVIDERS: ADMIT Surgery; ATTEND Surgery
PROC: 0DTJ4ZZ Resection of Appendix, Percutaneous Endoscopic Approach (ICD-10-PCS; principal; 2018-08-06 12:30)
DX: K35.80 Unspecified acute appendicitis (principal); Z79.899 Other long term (current) drug therapy
CPT/HCPCS: 36415; 74176; 80053; 81001; 81025; 83690; 84703; 85007; 85025; 87086; 87186; 88304; 90471; 90756; 93005; 96361; 96374; J1100; J1885; J2270; J2405; J2543; J2704; J2710; J3010; J3490; J7030; J7120; 99285-25; Q2035